=== PATIENT | female | born 1975 | race African-American/Black ===

== ENCOUNTER 2023-10-27 19:15 | Inpatient (IN) | payer MEDICAID ==
[~2023-10-27] VITALS: Ht 165.1 cm; Wt 85.3 kg
[2023-10-27 19:15] VITALS: BP 106/60; PULSE 66; RESP 17; TEMP 98.8
[2023-10-27 20:00] VITALS: BP 106/60; PULSE 66; RESP 17; TEMP 98.8
[2023-10-27] MEDS ORDERED: ONDANSETRON HCL 4MG/2ML INJ IV PRN (23:15)
[2023-10-27] MEDS ORDERED: SENNOSIDES/DOCUSATE SOD 8.6/50MG TABLET PO PRN (23:15)
[2023-10-27] MEDS ORDERED: ALBUTEROL (0.083%) 2.5MG/3ML NEB HHN PRN (23:15)
[2023-10-27] MEDS ORDERED: NALOXONE HCL 0.4MG/ML 1ML VIAL IV PRN (23:15)
[2023-10-27] MEDS ORDERED: PSYLLIUM SEED PACKET PO PRN (23:15)
[2023-10-27] MEDS ORDERED: BISACODYL 10MG SUPP PR PRN (23:15)
[2023-10-27] MEDS ORDERED: ACETAMINOPHEN 650MG/20.3ML UDC PO PRN (23:15)
[2023-10-27] MEDS ORDERED: DOCUSATE SODIUM 250MG CAPSULE PO PRN (23:15)
[2023-10-28 08:00] VITALS: BP 130/94; PULSE 73; RESP 18; TEMP 97.1
[2023-10-28] MEDS: FAMOTIDINE 20MG TABLET PO SCH (08:51)
[2023-10-28] MEDS: AMLODIPINE 10MG TABLET PO SCH (08:52)
[2023-10-28] MEDS: CARVEDILOL 12.5MG TABLET PO SCH (08:52)
[2023-10-28] MEDS: MINOXIDIL 2.5MG TABLET PO SCH (08:53)
[2023-10-28 13:35] LABS: CHLORIDE 106 mEq/L (98-107); POTASSIUM 4.3 mEq/L (3.5-5.1); SODIUM 137 mEq/L (136-145)
[2023-10-28 13:36] LABS: CALCIUM 9.3 mg/dL (8.7-10.4); CARBON DIOXIDE 25 mEq/L (21-32)
[2023-10-28 13:41] LABS: CREATININE 1.2 mg/dL (0.6-1.0); GLUCOSE 93 mg/dL (70-105); UREA NITROGEN BLOOD 16 mg/dL (9-23)
[2023-10-28 13:42] LABS: ALANINE AMINOTRANSFERASE 25 IU/L (10-49); ASPARTATE AMINOTRANSFERASE 28 IU/L (<34)
[2023-10-28 13:43] LABS: ALBUMIN 3.9 g/dL (3.2-4.8); BILIRUBIN TOTAL 0.4 mg/dL (0.1-1.0)
[2023-10-28 13:55] LABS: BASOPHILS % 1.3 % (0.0-2.0); EOSINOPHILS % 4.8 % (0.0-5.0); HEMOGLOBIN. 11.4 g/dL (12.0-16.0); LYMPHOCYTES % 29.1 % (20.0-50.0); MEAN CORPUSCULAR HEMOGLOBIN 29.4 pg (28.0-32.0); MEAN CORPUSCULAR HGB CONC 32.5 g/dL (31.0-37.0); MEAN CORPUSCULAR VOLUME 90.4 fL (81.0-99.0); MONOCYTES % 8.7 % (2.0-8.0); NEUTROPHILS % 56.1 % (40.0-76.0); RED BLOOD CELL COUNT 3.88 mill/uL (4.2-5.4); RED CELL DISTRIBUTION WIDTH 17.1 % (11.6-14.6)
[2023-10-28 14:18] LABS: DIFFERENTIAL COMMENT 1
[2023-10-28] MEDS: LORAZEPAM 0.5MG TABLET PO PRN (17:35)
[2023-10-28 17:38] LABS: MEAN PLATELET VOLUME 7.2 fl (7.4-10.4); PLATELET 280 x1000/uL (130-400)
[2023-10-28] MEDS: ENOXAPARIN 40MG/0.4ML SYR SUBCUT SCH (18:00)
[2023-10-28 20:00] VITALS: BP 122/67; PULSE 71; RESP 18; TEMP 98.4
[2023-10-28] MEDS: MELATONIN 3MG TABLET PO SCH (21:00)
[2023-10-29 08:00] VITALS: BP 158/88; PULSE 79; RESP 20; TEMP 98.1
[2023-10-29 18:28] LABS: BASOPHILS % 0.8 % (0.0-2.0); EOSINOPHILS % 4.6 % (0.0-5.0); HEMATOCRIT. 33.7 % (36.0-48.0); HEMOGLOBIN. 11.2 g/dL (12.0-16.0); LYMPHOCYTES % 34.8 % (20.0-50.0); MEAN CORPUSCULAR HEMOGLOBIN 30.1 pg (28.0-32.0); MEAN CORPUSCULAR HGB CONC 33.3 g/dL (31.0-37.0); MEAN CORPUSCULAR VOLUME 90.4 fL (81.0-99.0); MEAN PLATELET VOLUME 7.1 fl (7.4-10.4); MONOCYTES % 7.8 % (2.0-8.0); PLATELET 293 x1000/uL (130-400); RED BLOOD CELL COUNT 3.73 mill/uL (4.2-5.4); WHITE BLOOD COUNT 3.2 x1000/uL (4.5-11.0)
[2023-10-29 18:40] LABS: POTASSIUM 4.2 mEq/L (3.5-5.1)
[2023-10-29 18:41] LABS: CALCIUM 9.5 mg/dL (8.7-10.4)
[2023-10-29 18:46] LABS: CREATININE 1.3 mg/dL (0.6-1.0)
[2023-10-29 20:00] VITALS: BP 120/59; PULSE 82; RESP 18; TEMP 98.6
[2023-10-29] MEDS: RISPERIDONE 0.25MG TABLET PO SCH (20:57)
[2023-10-30 08:00] VITALS: BP 151/89; PULSE 85; RESP 18; TEMP 97.2
[2023-10-30] MEDS: HALOPERIDOL LACTATE 5MG/ML VIAL IM PRN (16:29)
[2023-10-30 20:00] VITALS: BP 111/55; PULSE 78; RESP 18; TEMP 98.7
[2023-10-30] MEDS: RISPERIDONE 1MG TABLET PO SCH (20:03)
[2023-10-31 08:00] VITALS: BP 116/64; PULSE 79; RESP 18; TEMP 97.4
[2023-10-31 20:00] VITALS: BP 128/75; PULSE 76; RESP 19; TEMP 98.9
[2023-11-01 08:00] VITALS: BP 146/83; PULSE 73; RESP 18; TEMP 97.4
[2023-11-01 08:07] VITALS: BP 146/83; PULSE 73; RESP 18; TEMP 97.4
[2023-11-01] MEDS: POLYETHYLENE GLYCOL 3350 (17GM) 1 DOSE PACK PO PRN (18:32)
[2023-11-01 20:00] VITALS: BP 121/60; PULSE 64; RESP 18; TEMP 98.8
[2023-11-02 08:05] VITALS: BP 142/89; PULSE 78; RESP 18; TEMP 99.3
[2023-11-02 20:00] VITALS: BP 129/71; PULSE 80; RESP 20; TEMP 98
[2023-11-03 08:00] VITALS: BP 119/58; PULSE 61; RESP 18; TEMP 97.3
[2023-11-03 20:00] VITALS: BP 141/70; PULSE 63; RESP 18; TEMP 97.7
[2023-11-03] MEDS: RISPERIDONE 0.5MG TABLET PO SCH (21:45)
[2023-11-04 08:00] VITALS: BP 116/80; PULSE 70; RESP 20; TEMP 97.7
[2023-11-04 20:00] VITALS: BP 136/82; PULSE 69; RESP 20; TEMP 97.7
[2023-11-05 08:00] VITALS: BP 160/85; PULSE 76; RESP 18; TEMP 97.3
[2023-11-05 20:00] VITALS: BP 124/62; PULSE 75; RESP 18; TEMP 97.3
[2023-11-05] MEDS: RISPERIDONE 0.25MG TABLET PO SCH (21:22)
[2023-11-06 08:00] VITALS: BP 122/61; PULSE 71; RESP 20; TEMP 97.2
[2023-11-06 20:00] VITALS: BP 124/49; PULSE 81; RESP 20; TEMP 97.7
[2023-11-07 08:00] VITALS: PULSE 80; RESP 20; TEMP 97.2
[2023-11-07 20:00] VITALS: BP 138/74; PULSE 82; RESP 18; TEMP 98.6
[2023-11-07] MEDS: CARVEDILOL 12.5MG TABLET PO SCH (22:54)
[2023-11-08 08:00] VITALS: BP 147/72; PULSE 73; RESP 19; TEMP 97.5
[2023-11-08 20:00] VITALS: BP 141/76; PULSE 79; RESP 18; TEMP 98.8
[2023-11-09 08:00] VITALS: BP 150/77; PULSE 69; RESP 18; TEMP 97.9
[2023-11-09 19:44] VITALS: BP 142/76; PULSE 79; RESP 22; TEMP 97.4
[2023-11-10 08:00] VITALS: BP 126/75; PULSE 77; RESP 18; TEMP 97.8
[2023-11-10 19:59] VITALS: BP 124/43; PULSE 53; RESP 19; TEMP 97.2
[2023-11-11 07:58] VITALS: BP 150/81; PULSE 86; RESP 18; TEMP 98.2
[2023-11-11 20:00] VITALS: BP 162/85; PULSE 77; RESP 18; TEMP 98.4
[2023-11-12 08:00] VITALS: BP 154/84; PULSE 78; RESP 18; TEMP 97.4
[2023-11-12 16:21] LABS: BASOPHILS % 1.3 % (0.0-2.0); EOSINOPHILS % 1.3 % (0.0-5.0); HEMATOCRIT. 37.5 % (36.0-48.0); HEMOGLOBIN. 12.5 g/dL (12.0-16.0); LYMPHOCYTES % 32.1 % (20.0-50.0); MEAN CORPUSCULAR HEMOGLOBIN 29.6 pg (28.0-32.0); MEAN CORPUSCULAR HGB CONC 33.4 g/dL (31.0-37.0); MEAN CORPUSCULAR VOLUME 88.6 fL (81.0-99.0); MEAN PLATELET VOLUME 6.7 fl (7.4-10.4); MONOCYTES % 9.1 % (2.0-8.0); NEUTROPHILS % 56.2 % (40.0-76.0); PLATELET 317 x1000/uL (130-400); RED BLOOD CELL COUNT 4.23 mill/uL (4.2-5.4); RED CELL DISTRIBUTION WIDTH 16.6 % (11.6-14.6); WHITE BLOOD COUNT 3.3 x1000/uL (4.5-11.0)
[2023-11-12 16:24] LABS: CHLORIDE 105 mEq/L (98-107); POTASSIUM 3.9 mEq/L (3.5-5.1); SODIUM 139 mEq/L (136-145)
[2023-11-12 16:26] LABS: CALCIUM 9.6 mg/dL (8.7-10.4); CARBON DIOXIDE 25 mEq/L (21-32)
[2023-11-12 16:31] LABS: CREATININE 1.3 mg/dL (0.6-1.0); GLUCOSE 103 mg/dL (70-105); UREA NITROGEN BLOOD 11 mg/dL (9-23)
[2023-11-12 16:32] LABS: ALANINE AMINOTRANSFERASE 12 IU/L (10-49)
[2023-11-12 16:33] LABS: ALBUMIN 4.3 g/dL (3.2-4.8); ASPARTATE AMINOTRANSFERASE 20 IU/L (<34); BILIRUBIN TOTAL 0.4 mg/dL (0.1-1.0); PHOSPHORUS 4.4 mg/dL (2.5-4.9); PROTEIN TOTAL 7.4 g/dL (6.0-8.3)
[2023-11-12 16:45] LABS: CLARITY URINE CLOUDY (CLEAR); COLOR URINE YELLOW (YELLOW); GLUCOSE URINE NEGATIVE (NEGATIVE); KETONES URINE NEGATIVE (NEGATIVE); LEUKOCYTE ESTERASE URINE 3+ (NEGATIVE); NITRITE URINE NEGATIVE (NEGATIVE); OCCULT BLOOD URINE NEGATIVE (NEGATIVE); PH URINE 6.5 (4.5-8.0); PROTEIN URINE NEGATIVE (NEGATIVE); SPECIFIC GRAVITY URINE 1.011 (1.005-1.030)
[2023-11-12 17:00] LABS: *AMPHETAMINES SCREEN URINE NEGATIVE (NEGATIVE)
[2023-11-12 17:01] LABS: *BARBITURATES SCREEN URINE NEGATIVE (NEGATIVE); *BENZODIAZEPINES SCREEN URINE NEGATIVE (NEGATIVE); *COCAINE SCREEN URINE NEGATIVE (NEGATIVE); CANNABINOID URINE SCREEN NEGATIVE (NEGATIVE); ECSTASY MDMA SCREEN URINE NEGATIVE (NEGATIVE); METHADONE URINE SCREEN NEGATIVE (NEGATIVE); OPIATES URINE SCREEN NEGATIVE (NEGATIVE); PHENCYCLIDINE URINE SCREEN NEGATIVE (NEGATIVE)
[2023-11-12 17:36] LABS: BACTERIA URINE 2+; RBC URINE 0-2 /hpf (0-2); SQUAMOUS EPITHELIAL CELL URINE 2+ /lpf (RARE/1+); WBC URINE 25-50 /hpf (0-2)
[2023-11-12 17:37] LABS: TRICHOMONAS URINE 1+
[2023-11-12 20:00] VITALS: BP 146/81; PULSE 84; RESP 19; TEMP 98.6
[2023-11-12] MEDS: CEFTRIAXONE 1GM/50ML 50 ML IV SCH (23:14)
[2023-11-12] MEDS: SODIUM CHLORIDE 0.45% 1,000 ML IV SCH (23:14)
[2023-11-13 02:16] LABS: AMMONIA < 17 uMol/L (<32)
[2023-11-13 05:45] LABS: BASOPHILS % 2.8 % (0.0-2.0); EOSINOPHILS % 2.4 % (0.0-5.0); HEMATOCRIT. 34.9 % (36.0-48.0); HEMOGLOBIN. 11.9 g/dL (12.0-16.0); LYMPHOCYTES % 34.7 % (20.0-50.0); MEAN CORPUSCULAR HEMOGLOBIN 29.6 pg (28.0-32.0); MEAN CORPUSCULAR HGB CONC 34.1 g/dL (31.0-37.0); MEAN CORPUSCULAR VOLUME 86.8 fL (81.0-99.0); MEAN PLATELET VOLUME 6.8 fl (7.4-10.4); MONOCYTES % 10.4 % (2.0-8.0); NEUTROPHILS % 49.7 % (40.0-76.0); PLATELET 315 x1000/uL (130-400); RED BLOOD CELL COUNT 4.02 mill/uL (4.2-5.4); RED CELL DISTRIBUTION WIDTH 16.7 % (11.6-14.6); WHITE BLOOD COUNT 2.5 x1000/uL (4.5-11.0)
[2023-11-13 05:52] LABS: CARBON DIOXIDE 27 mEq/L (21-32); CHLORIDE 104 mEq/L (98-107); POTASSIUM 3.8 mEq/L (3.5-5.1); SODIUM 140 mEq/L (136-145)
[2023-11-13 05:53] LABS: CALCIUM 9.4 mg/dL (8.7-10.4)
[2023-11-13 05:58] LABS: CREATININE 1.2 mg/dL (0.6-1.0); GLUCOSE 96 mg/dL (70-105); UREA NITROGEN BLOOD 12 mg/dL (9-23)
[2023-11-13 06:00] LABS: PHOSPHORUS 4.8 mg/dL (2.5-4.9)
[2023-11-13 08:00] VITALS: BP 152/94; PULSE 76; RESP 20; TEMP 98.1
[2023-11-13] MEDS ORDERED: MINO2.5T19 PO (09:38)
[2023-11-13] MEDS ORDERED: MELA1TAB15 PO (09:38)
[2023-11-13] MEDS ORDERED: COR12 PO (09:38)
[2023-11-13] MEDS ORDERED: RISP0.2514 PO (09:38)
[2023-11-13] MEDS ORDERED: SULF1TAB48 PO (09:38)
[2023-11-13] MEDS ORDERED: AMLO10TA80 PO (09:38)
[2023-11-13] MEDS ORDERED: WHEA144P PO (10:03)
[2023-11-13 12:05] VITALS: BP 142/80; PULSE 76; TEMP 98.1; O2SAT 100
== END 2023-11-13 13:02 | disposition home health service (06) | DRG 45 ==
PROVIDERS: ADMIT Psychiatry & Neurology Neurology; ATTEND Internal Medicine
DX: I63.9 Cerebral infarction, unspecified (principal); I61.8 Other nontraumatic intracerebral hemorrhage; J96.01 Acute respiratory failure with hypoxia; G93.40 Encephalopathy, unspecified; G91.1 Obstructive hydrocephalus; J18.9 Pneumonia, unspecified organism; D70.9 Neutropenia, unspecified; N17.9 Acute kidney failure, unspecified; I16.1 Hypertensive emergency; N39.0 Urinary tract infection, site not specified; R45.87 Impulsiveness; Z74.09 Other reduced mobility; D64.9 Anemia, unspecified; E66.9 Obesity, unspecified; R26.9 Unspecified abnormalities of gait and mobility; R74.01 Elevation of levels of liver transaminase levels; E66.01 Morbid (severe) obesity due to excess calories; F17.210 Nicotine dependence, cigarettes, uncomplicated; Z68.42 Body mass index [BMI] 45.0-49.9, adult; Z87.01 Personal history of pneumonia (recurrent)
CPT/HCPCS: 36415; 70551; 80048; 80053; 80305; 81003; 82140; 83735; 84100; 85025; 87077; 87186; 92523; 92610; 93970; 97110; 97112; 97116; 97150; 97162; 97165; 97530; 97535; 97542; J0696; J1630; J1650